=== PATIENT | male | born 1965 | race Hispanic/Latino ===

== ENCOUNTER 2019-04-07 14:30 | Emergency (ER) | payer SELFPAY ==
[2019-04-07] MEDS ORDERED: Dexamethasone 4 mg/ml Vial ONE (16:18)
[2019-04-07] MEDS ORDERED: Ketorolac Tromethamine 30 MG/ML VIAL ONE (16:18)
== END 2019-04-07 17:50 | disposition home or self-care (01) ==
LOC: ERS 14:30
DX: M54.42 Lumbago with sciatica, left side (principal); F17.210 Nicotine dependence, cigarettes, uncomplicated
CPT/HCPCS: 96372; 99283; J1100; J1885

== ENCOUNTER 2019-06-24 13:46 | Outpatient (CLI) | payer OTHER ==
--- NOTE | 2019-06-24 14:43 | MRI ---
EXAM: Lumbar spine MRI without contrast. HISTORY: Low back pain, radiculopathy of the lumbosacral region COMPARISON: None FINDINGS: Multiplanar, multisequence MRI examination of the lumbar spine is performed. The conus medullaris region appears unremarkable. No evidence for abnormal marrow signal. Generalized disc desiccation changes and ligament and facet hypertrophic changes. T12-L1 disc level: Unremarkable. L1-L2 disc level: Mild disc bulging with mild central canal and moderate lateral recess stenosis and mild bilateral foraminal stenosis. L2-L3 disc level: Broad-based central and left central protrusion with moderate central canal and mod erate to severe left lateral recess stenosis and bilateral foraminal stenosis. L3-L4 disc level: Moderate central canal and moderate to severe lateral recess stenosis and mild-to-m oderate bilateral foraminal stenosis. L4-L5 disc level: Severe disc bulging with severe central canal and lateral recess stenosis and bilat eral foraminal stenosis. L5-S1 disc level: Severe disc osteophytosis particularly centrally in the right paracentral region wi th compression of the right S1 nerve root with moderate central canal stenosis, severe right lateral recess stenosis and severe right foraminal stenosis and moderate left foraminal stenosis. IMPRESSION: Multilevel variable severity, up to severe, central canal, lateral recess, and foraminal stenosis as above.
== END 2019-06-24 13:47 | disposition home or self-care (01) ==
LOC: BICMRI 13:46
PROVIDERS: ATTEND Internal Medicine
DX: M54.17 Radiculopathy, lumbosacral region (principal); M48.061 Spinal stenosis, lumbar region without neurogenic claudication; M48.07 Spinal stenosis, lumbosacral region
CPT/HCPCS: 72148

== ENCOUNTER 2019-08-05 07:41 | Day surgery (SDC) | payer OTHER ==
[2019-08-03 14:44] VITALS: BMI 23.0
--- NOTE | 2019-08-04 17:57 | HP ---
HISTORY OF PRESENT ILLNESS: Mr. Alejandro today for evaluation of severe left-sided lower back pain, lateral hip and lateral calf pain associated with numbness and tingling to the lateral left foot and sole. He has history of distant lumbar decompression with Dr. Juarez some 22 years ago for right-sided radiculopathy. These pains began steadily worsened. He has been treating this at home with exercises and [id number] pain medication as well as prescribed pain medication mostly to help with sleep. His pain is worse when walking and when he is sitting for long periods of time. An MRI from [facility] reveals severe spinal stenosis at L4-L5 as well as scattered moderate canal stenosis throughout the remainder. 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 PAST MEDICAL HISTORY: Chronic pain syndrome. He does not take any current medications. PAST SURGICAL HISTORY: Lumbar decompression. ALLERGIES: NO KNOWN DRUG ALLERGIES. PHYSICAL EXAMINATION: GENERAL: The patient is alert and oriented x3. Severely antalgic gait. Lower extremity motor exam is normal. Positive straight leg raise on the left. ASSESSMENT: Lumbar radiculopathy. PLAN: Dr. Pardo met with the patient, reviewed imaging, advocated for left L4-L5 decompression. He explained to the patient the risks, benefits, and alternatives to the procedure. The patient expressed understanding and elected to move forward with surgery as discussed. I do believe the patient is mentally competent and capable of making medical decisions for himself. We will move forward with surgery as planned. Job ID: [id number]
[2019-08-05] MEDS ORDERED: Rocuronium Bromide 10 MG/ML (10ML VIAL) ONE (10:12)
[2019-08-05] MEDS ORDERED: Ondansetron PF 4 MG/2 ML Vial ONE (10:12)
[2019-08-05] MEDS ORDERED: Glycopyrrolate 0.2 MG/ML 5 ML SYRINGE ONE (10:12)
[2019-08-05] MEDS ORDERED: Ketorolac Tromethamine 30 MG/ML VIAL ONE (10:12)
[2019-08-05] MEDS ORDERED: Lidocaine 1% PF 5 ML VIAL ONE (10:12)
[2019-08-05] MEDS ORDERED: PROPOFOL 200 MG/20 ML VIAL ONE (10:12)
[2019-08-05] MEDS ORDERED: Dexamethasone 10 MG/ML VIAL ONE (10:12)
[2019-08-05] MEDS ORDERED: ePHEDrine/0.9% NaCl/PF SYRINGE 50 mg/10 ml ONE (10:12)
[2019-08-05] MEDS ORDERED: Fentanyl 100 MCG/2 ML VIAL ONE ×3 (10:46→13:22)
[2019-08-05] MEDS ORDERED: Bupivacaine HCl 0.5%/Epinephrine 1:200,000/PF 30 ml Vial ONE (10:46)
[2019-08-05] MEDS ORDERED: HYDROmorphone 0.5 MG/0.5 ML SYRINGE ONE (10:47)
--- NOTE | 2019-08-05 11:56 | OP ---
DATE OF PROCEDURE: 08/05/2019 [facility] MANAGER: Tai Romero PA-C INDICATION: Pain. DIAGNOSIS: Lumbar radiculopathy. PROCEDURE PERFORMED: Left L4-L5 decompression. ANESTHESIA: General. DESCRIPTION OF PROCEDURE: The patient was brought into the operating room and placed under general anesthesia. He was flipped from the supine to prone position on the operating room table. A linear incision was planned over the L4-L5 segment. After prepping and draping and after an appropriate operative pause, the incision was created. The soft tissues were swept left of midline. A self-retaining retractor was placed in the wound for optimal exposure. After confirming the appropriate level with C-arm fluoroscopy, high-speed cutting drill bit as well as 2, 3, and 4 mm Kerrisons were used to perform a laminectomy along the inferior aspect of L4 and the superior aspect of L5. The laminectomy was extended laterally to encompass the medial aspect of the facet joint in order to decompress the lateral recess, and therefore, the descending L5 nerve root on the left. After completing the decompression, the wound was irrigated. Hemostasis was maintained throughout. The wound was then closed in anatomic layers and a pressure dressing was applied. There were no known procedural complications. Job ID: [id number]
[2019-08-05] MEDS ORDERED: Tamsulosin HCl 0.4 MG CAP ONE (12:22)
== END 2019-08-05 15:25 | disposition home or self-care (01) ==
LOC: SDC 07:41
PROVIDERS: ATTEND Neurological Surgery
PROC: 0ST20ZZ Resection of Lumbar Vertebral Disc, Open Approach (ICD-10-PCS; principal; 2019-08-05)
DX: M54.16 Radiculopathy, lumbar region (principal); G89.4 Chronic pain syndrome
CPT/HCPCS: 76000; J0670; J0690; J1100; J1170; J1885; J2001; J2405; J2704; J3010

== ENCOUNTER 2022-05-21 14:05 | Emergency (ER) | payer OTHER, SELFPAY ==
[2022-05-21] MEDS ORDERED: Ketorolac Tromethamine 30 MG/ML VIAL ONE (16:11)
== END 2022-05-21 17:36 | disposition home or self-care (01) ==
LOC: ERS 14:05
DX: M25.462 Effusion, left knee (principal); W18.09XA Striking against other object with subsequent fall, initial encounter; F17.210 Nicotine dependence, cigarettes, uncomplicated
CPT/HCPCS: 96372; J1885